=== PATIENT | female | born 1935 | race Caucasian/White ===

== ENCOUNTER 2017-01-27 08:41 | Inpatient (IN) | payer MEDICARE, BC ==
[~2017-01-27 08:41] MED LIST: ADULT ASPIRIN81 MG PO; ALDACTONE25 MG; ALDACTONE25 MG PO; ALPH-E/SUCCI400 UNIT; ALPH-E/SUCCI400 UNIT PO; ASPIR 8181 M1 PO; ASPIRIN81 MG; BIOTIN1 MG PO; BIOTIN500 MCG; BIOTIN5000 MCG PO; CIPRO500 M2 PO; CYCLOBENZAPRINE10 M1 PO; CYCLOBENZAPRINE5 M1 PO; CYMBALTA PO; FLUTICASONE PRO16 G1; HAIR, SKIN & N1 EAC1 PO; KEFLEX500 M4 PO; LORTAB 7.5-3251 EAC1 PO; LUMIGAN2.5 M2 OP; MOBIC15 M2 PO; NEURONTIN300 M1 PO; OMEPRAZOLE10 MG; OMEPRAZOLE10 MG PO; OMEPRAZOLE20 M3 PO; PEPCID AC20 MG PO; PERCOCET PO; PLAVIX75 M1 PO; PLAVIX75 MG PO; PREMARIN0.625 MG; PREMARIN0.625 MG PO; PROPECIA1 MG; PROPECIA1 MG PO; PROTONIX20 M2 PO; PROTONIX40 M2 PO; PROVERA2.5 MG; PROVERA2.5 MG PO; SYNTHROID25 MCG; SYNTHROID25 MCG PO; SYNTHROID50 MC1 PO; SYNTHROID75 MC1 PO; TYLENOL EXTRA500 M1 PO; ULTRAM50 M1 PO; VITAMIN D1000 UNI3 PO; VITAMIN D31000 UNI4 PO; ZOCOR40 M1 PO; ZOCOR40 MG; ZOCOR40 MG PO; ZOFRAN ODT4 MG PO
[2017-01-28 04:56] LABS: EOS % 0.1 % (0-7); HCT-HEMATOCRIT 25.8 % (34.0-49.0); HGB-HEMOGLOBIN 8.6 gm/dl (12.0-15.5); IMMATURE GRANULOCYTES ABSOLUTE 0.01 tho/cmm (0-0.03); IMMATURE GRANULOCYTES PERCENT 0.1 % (0-0.3); LYMPH % 17.9 % (20-45); LYMPH ABSOLUTE COUNT 1.5 tho/cmm (0.8-4.5); MCH (MEAN CORPUSCULAR HGB) 30.6 pg (28.0-32.0); MCHC MEAN CORPUSCULAR HGB CONC 33.3 % (32.0-36.0); MCV (MEAN CELL VOLUME) 91.8 fl (82.0-96.0); MEAN PLATELET VOLUME 9.7 cmc (9.4-12.4); MONO % 9.2 % (0-12); MONOCYTE ABSOLUTE COUNT 0.8 tho/cmm (0.0-1.2); NEUTROPHIL ABSOLUTE COUNT 6.1 tho/cmm (1.6-8.0); NEUTROPHIL-AUTOMATED 6.1 tho/cmm (1.6-8.0); NEUTROPHILS % 72.7 % (40-80); PLATELET COUNT 186 tho/cmm (150-450); RED BLOOD COUNT 2.81 mil/cmm (4.00-5.20); RED CELL DISTRIBUTION WIDTH 13.9 % (12.4-16.4); WHITE BLOOD COUNT 8.4 tho/cmm (4.0-10.0)
[2017-01-30] MEDS ORDERED: ROXICODONE5 M2 PO (13:09)
== END 2017-01-30 14:45 | DRG 470 ==
LOC: SHSC 08:41 → ORE 11:16 → PACU 13:56 → 5EA 15:15
PROVIDERS: ADMIT Orthopaedic Surgery Orthopaedic Surgery of the Spine
PROC: 0SRC0J9 Replacement of Right Knee Joint with Synthetic Substitute, Cemented, Open Approach (ICD-10-PCS; principal; 2017-01-27)
DX: M17.11 Unilateral primary osteoarthritis, right knee (principal); D62 Acute posthemorrhagic anemia; M21.071 Valgus deformity, not elsewhere classified, right ankle; E78.5 Hyperlipidemia, unspecified
CPT/HCPCS: C1713; C1776; J0171; J0690; J1170; J1885; J2270; J2795; J7030

== ENCOUNTER 2017-02-01 07:45 | Emergency (ER) | payer MEDICARE, BC ==
[~2017-02-01 07:45] MED LIST changes: +ROXICODONE5 M2 PO
[2017-02-01 08:39] LABS: BASO % 0.2 % (0-2); EOS % 0.9 % (0-7); EOSINOPHIL ABSOLUTE COUNT 0.1 tho/cmm (0.0-0.7); HCT-HEMATOCRIT 27.9 % (34.0-49.0); HGB-HEMOGLOBIN 9.4 gm/dl (12.0-15.5); IMMATURE GRANULOCYTES ABSOLUTE 0.01 tho/cmm (0-0.03); IMMATURE GRANULOCYTES PERCENT 0.2 % (0-0.3); LYMPH % 16.1 % (20-45); LYMPH ABSOLUTE COUNT 0.9 tho/cmm (0.8-4.5); MCH (MEAN CORPUSCULAR HGB) 30.6 pg (28.0-32.0); MCHC MEAN CORPUSCULAR HGB CONC 33.7 % (32.0-36.0); MCV (MEAN CELL VOLUME) 90.9 fl (82.0-96.0); MEAN PLATELET VOLUME 9.3 cmc (9.4-12.4); MONO % 7.4 % (0-12); MONOCYTE ABSOLUTE COUNT 0.4 tho/cmm (0.0-1.2); NEUTROPHIL ABSOLUTE COUNT 4.4 tho/cmm (1.6-8.0); NEUTROPHIL-AUTOMATED 4.4 tho/cmm (1.6-8.0); NEUTROPHILS % 75.2 % (40-80); PLATELET COUNT 281 tho/cmm (150-450); RED BLOOD COUNT 3.07 mil/cmm (4.00-5.20); RED CELL DISTRIBUTION WIDTH 13.6 % (12.4-16.4); WHITE BLOOD COUNT 5.8 tho/cmm (4.0-10.0)
[2017-02-01 08:48] LABS: ANION GAP 14 mmol/L (0-20); BLOOD UREA NITROGEN 14 mg/dl (6-24); CALCIUM 8.9 mg/dl (8.5-10.5); CARBON DIOXIDE-VENOUS 25 mmol/L (22-32); CHLORIDE 104 mmol/l (96-110); GLUCOSE 93 mg/dL (70-110); POTASSIUM 3.9 mmol/L (3.7-5.1); SODIUM 139 mmol/L (135-145); eGFR VALUE FOR BLACK >90 mL/Min
[2017-02-01] MEDS ORDERED: ZOFRAN ODT4 MG PO (09:14)
== END 2017-02-01 09:57 ==
LOC: EDMED 07:45
PROVIDERS: Emergency Medicine
DX: G89.18 Other acute postprocedural pain (principal); M25.561 Pain in right knee; Z86.73 Personal history of transient ischemic attack (TIA), and cerebral infarction without residual deficits; Z79.82 Long term (current) use of aspirin; Z79.899 Other long term (current) drug therapy
CPT/HCPCS: J2405; J7030

== ENCOUNTER 2017-02-02 07:19 | Emergency (ER) | payer MEDICARE, BC | END 2017-02-02 09:00 | disposition T | LOC: EDMED 07:19 | DX: G89.18 Other acute postprocedural pain (principal); M25.561 Pain in right knee; E07.9 Disorder of thyroid, unspecified; M79.604 Pain in right leg; Z86.718 Personal history of other venous thrombosis and embolism; Z98.890 Other specified postprocedural states; Z90.89 Acquired absence of other organs; Z79.82 Long term (current) use of aspirin; Z79.890 Hormone replacement therapy; Z79.899 Other long term (current) drug therapy ==